=== PATIENT | male | born 1960 | race Two or more races ===

== ENCOUNTER 2018-01-15 22:53 | Emergency (ER) | payer OTHER ==
[~2018-01-15] VITALS: Ht 165.1 cm; Wt 90.3 kg
[2018-01-16] MEDS ORDERED: TAMS0.4C PO (03:44)
[2018-01-16] MEDS ORDERED: KETO10TA2 PO (03:44)
== END 2018-01-16 04:14 | disposition home or self-care (01) ==
LOC: ER 22:53
DX: N20.0 Calculus of kidney (principal)

== ENCOUNTER 2019-04-22 10:18 | Emergency (ER) | payer OTHER ==
[~2019-04-22] VITALS: Ht 165.1 cm; Wt 88.5 kg
[~2019-04-22 10:18] MED LIST: KETO10TA2 PO; TAMS0.4C PO
== END 2019-04-22 11:33 | disposition home or self-care (01) ==
LOC: ER 10:18
DX: M25.512 Pain in left shoulder (principal)

== ENCOUNTER 2020-04-30 15:14 | Emergency (ER) | payer OTHER ==
[~2020-04-30] VITALS: Ht 165.1 cm; Wt 87.1 kg
[2020-04-30] MEDS ORDERED: PEPCID AC20 MG PO (20:32)
[2020-04-30] MEDS ORDERED: FLAGYL500MG PO (20:32)
== END 2020-04-30 20:54 | disposition home or self-care (01) ==
LOC: ER 15:14
DX: B34.9 Viral infection, unspecified (principal); R19.7 Diarrhea, unspecified; R53.81 Other malaise; Z03.818 Encounter for observation for suspected exposure to other biological agents ruled out
CPT/HCPCS: 71250; 71260; Q9965; 82805; 36600